=== PATIENT | male | born 2000 | race Caucasian/White ===

== ENCOUNTER 2020-08-24 16:35 | Outpatient (CLI) | payer OTHER | END 2020-08-24 16:36 | disposition critical access hospital (66) | LOC: EMS 16:35 | PROVIDERS: ATTEND Surgery | DX: R55 Syncope and collapse (principal) | CPT/HCPCS: A0425; A0427 ==

== ENCOUNTER 2020-08-24 16:57 | Emergency (ER) | payer OTHER ==
[2020-08-24 17:41] LABS: BASOPHILS % (AUTO) 0.6 %; EOSINOPHILS # (AUTO) 0.1 10^3/uL (0.0-0.7); EOSINOPHILS % (AUTO) 0.9 %; HGB - HEMOGLOBIN 13.1 g/dL (14.0-18.0); LYMPHOCYTES # (AUTO) 1.2 10^3/uL (1.5-3.5); MEAN CORPUSCULAR HEMOGLOBIN 27.5 pg (27.0-31.0); MEAN CORPUSCULAR HGB CONC 32.3 g/dL (32.0-36.0); MEAN CORPUSCULAR VOLUME 85.3 fL (80.0-94.0); MEAN PLATELET VOLUME 9.2 fL (7.4-11.4); MONOCYTES # (AUTO) 0.4 10^3/uL (0.0-1.0); MONOCYTES % (AUTO) 5.3 %; NEUTROPHILS # (AUTO) 5.4 10^3/uL (1.5-6.6); NEUTROPHILS % (AUTO) 76.1 %; PLT - PLATELET COUNT 214 10^3/uL (130-450); RED BLOOD COUNT 4.76 10^6/uL (4.70-6.10); RED CELL DISTRIBUTION WIDTH 13.3 % (12.0-15.0)
--- NOTE | 2020-08-24 17:41 | ED Physician Documentation ---
History of Present Illness - Stated complaint Stated Complaint: 0. - Chief complaint Chief Complaint: General - Additonal information Additional information: 19-year-old male presents to the emergency department for a syncopal episode. He reports that he was sitting at his computer, began to feel lightheaded and dizzy and nauseated. He then slumped to the ground and had a very brief loss of consciousness. He states that he had smoked cannabis about an hour prior to the event but this is not unusual or new for him. He denies that he was having chest pain or shortness of breath. EMS on scene noted and blood sugar of 90. He does report to me a history of hypoglycemia but states that he had eaten normally this morning. He has no abdominal pain nausea or vomiting. He has no focal neuro deficits. At present he reports that he feels well. He states that about 9 years ago he did have a fainting episode but is unsure what the cause of that was. He denies any family history of recurrent syncopal events early cardiac . He denies that he has exertional chest pain. No recent travel, unilateral leg swelling, cough or fevers Review of Systems Constitutional: reports: Reviewed and negative Eyes: denies: Loss of vision, Decreased vision Ears: reports: Reviewed and negative Nose: reports: Reviewed and negative Throat: reports: Reviewed and negative Cardiac: denies: Chest pain / pressure, Palpitations Respiratory: denies: Dyspnea, Cough GI: denies: Abdominal Pain, Abdominal Swelling, Nausea, Vomiting : denies: Dysuria, Frequency, Hesitancy Skin: denies: Rash, Lesions Musculoskeletal: denies: Neck pain, Back pain Neurologic: reports: Syncope. denies: Generalized weakness, Focal weakness, Numbness, Difficulty speaking, Near syncope, Seizure, Confused, Unresponsive, Headache, Head injury, LOC Psychiatric: reports: Reviewed and negative PD PAST MEDICAL HISTORY - Past Medical History Past Medical History: Yes Psych: Depression - Past Surgical History Past Surgical History: No - Present Medications Home Medications: Ambulatory Orders Medication Instructions Recorded Confirmed Sertraline HCl 2 tab PO DAILY 08/24/20 08/24/20 - Allergies Allergies/Adverse Reactions: Allergies Allergy/AdvReac Type Severity Reaction Status Date / Time No Known Drug Allergies Allergy Verified 08/24/20 17:09 - Social History Does the pt smoke?: Yes Smoking Status: Current every day smoker Does the pt drink ETOH?: No Does the pt have substance abuse?: Yes Substance Use and Type: Marijuana PD ED PE EXPANDED - General General: Alert, No acute distress, Well developed/nourished - HEENT HEENT: Atraumatic, PERRL, EOMI, Moist mucous membranes, Pharynx normal - Neck Neck: Supple w/out meningeal sx, No tenderness. No: JVD present, Adenopathy - Cardiac Cardiac: Regular Rate, Regular Rhythm, Radial strong equal, Pedal strong equal, Cap refill < 2 sec. No: Murmur Present - Respiratory Respiratory: Clear to ausultation darlyn. No: Distress, Labored - Abdomen Abdomen: Normal Bowel sounds. No: Tender to palpation - Derm Derm: Normal color, Warm and dry. No: Rash - Extremities Extremities: Pedal Pulses Present. No: Deformity, Tenderness, Pedal edema bilateral - Neuro Neuro: Alert and Oriented X 3, CNII-XII intact, Cerebellar nl, Normal gait, Normal finger nose, Normal speech - GCS Eye Opening: Spontaneous Motor: Obeys Commands Verbal: Oriented Total: 15 Results - Vitals Vitals: Vital Signs - 24 hr 08/24/20 17:05 Temperature 37.2 C Heart Rate 60 Respiratory 16 Rate Blood Pressure 96/58 L O2 Saturation 99 Oxygen O2 Source Room air - EKG (time done) 1717 Rate: Rate (enter#) (50) Rhythm: Other (bradycardia; ectopic atrial) Whitt: Normal Intervals: Normal NM QRS: Normal Ischemia: Normal ST segments Compare to prior EKG: Old EKG unavailable Computer interpretation: Agree with computer - Labs Labs: Laboratory Tests 08/24/20 08/24/20 08/24/20 17:33 17:35 17:35 WBC 7.0 RBC 4.76 Hgb 13.1 L Hct 40.6 L MCV 85.3 MCH 27.5 MCHC 32.3 RDW 13.3 Plt Count 214 MPV 9.2 Neut # (Auto) 5.4 Lymph # (Auto) 1.2 L [place] # (Auto) 0.4 Eos # (Auto) 0.1 Baso # (Auto) 0.0 Absolute Nucleated RBC 0.00 Nucleated RBC % 0.0 Sodium 141 Potassium 4.1 Chloride 101 Carbon Dioxide 30 Anion Gap 10.0 BUN 17 Creatinine 0.9 Estimated GFR (MDRD) 107 Glucose 103 H POC Whole Bld Glucose 97 Calcium 9.0 Total Bilirubin 0.5 AST 19 ALT 20 Alkaline Phosphatase 52 Total Protein 7.2 Albumin 4.2 Globulin 3.0 Albumin/Globulin Ratio 1.4 Lipase 21 L - Rads (name of study) CXR Radiology: Final report received (No acute findings) PD MEDICAL DECISION MAKING - ED course Complexity details: reviewed results, re-evaluated patient, considered differential, d/w patient ED course: 19-year-old male presents the emergency department after a syncopal episode this afternoon when he was sitting at a computer. On initial evaluation he appears quite well no neuro logical deficits. He is noted to have a sinus rhythm rate in the 50s. His orthostatic blood pressures were unremarkable. Screening CBC and chemistry unremarkable. Patient denies any chest pain or chest pressure. PERC criteria negative, I doubt PE. Unclear etiology the patient's syncopal event. Does not seem to be associated with any seizure activity. Patient will be discharged home. He was advised to abstain from daily cannabis use until improved. I have referred him to [facility] for further follow-up. He may benefit from a Holter monitor as an outpatient. Departure - Departure Disposition: Home, Self Care Clinical Impression: Syncope Qualifiers: Syncope type: unspecified Qualified Code(s): R55 - Syncope and collapse Condition: Stable Record reviewed to determine appropriate education?: Yes Instructions: ED Fainting Unkn Cause Follow-Up: [facility] [Provider Group] Comments: Aaron you were seen in the emergency today after a fainting episode. Your chest x-ray and labs are all unremarkable. We checked your blood pressure and vital signs in various positions and there were no signs of orthostatic changes. Your EKG is essentially normal however in follow-up it is important that you see a primary care provider. You may benefit from having further outpatient testing such as a Holter monitor. If at any point you have any chest pain or shortness of breath, you have further syncopal episodes please return immediately to the ER
[2020-08-24 17:54] LABS: ALBUMIN 4.2 g/dL (3.2-5.5); ALBUMIN/GLOBULIN RATIO 1.4 (1.0-2.2); BILIRUBIN,TOTAL 0.5 mg/dL (0.2-1.0); CREATININE 0.9 mg/dL (0.6-1.2); TOTAL PROTEIN 7.2 g/dL (6.7-8.2)
--- NOTE | 2020-08-24 18:04 | XRAY Report ---
PROCEDURE: Chest 1 View X-Ray INDICATIONS: chest pain TECHNIQUE: One view of the chest was acquired. COMPARISON: None FINDINGS: Surgical changes and devices: None. Lungs and pleura: No pleural effusions or pneumothorax. Lungs are clear. Mediastinum: Mediastinal contours appear normal. Heart size is normal. Bones and chest wall: No suspicious bony lesions. Overlying soft tissues appear unremarkable. IMPRESSION: No acute process. Reviewed by: Brii Armstrong MD on 08/24/2020 6:02 PM [facility] Approved by: Brii Armstrong MD on 08/24/2020 6:02 PM [facility] Station ID: [id number]
[2020-08-24 18:42] VITALS: BP 92/52
[2020-08-24] MEDS ORDERED: SODIUM CHLORIDE 0.9% 1,000 ML IV STA (18:48)
== END 2020-08-24 18:40 | disposition home or self-care (01) ==
LOC: ED 16:57
DX: R55 Syncope and collapse (principal); I49.1 Atrial premature depolarization; R00.1 Bradycardia, unspecified; F17.200 Nicotine dependence, unspecified, uncomplicated
CPT/HCPCS: 36415; 80053; 83690; 85025; 93005; 96360; 99283